=== PATIENT | female | born 1970 | race Caucasian/White ===

== ENCOUNTER 2023-04-06 13:35 | Outpatient (REF) | payer MEDICAID, SELFPAY ==
--- NOTE | 2023-04-07 11:33 | MHC.AU.HA3 ---
Hearing Instrument Follow-Up- Binaural Date of Visit: 04/06/23 Right Ear: Mahesh, Model, Color, Serial Number: Oth[employer]o OPN S2 miniRITE-T [id number] Nuclear Instructor Repair Warranty: 06/26/2022 Nuclear Instructor Loss and Damage Warranty: 06/26/2022 Battery Size: 312 Weaving Inspector/Slim Tube: 3/100 Earmold/Dome/CShell/SlimTip:10 mm double gordon dome (no retention tail) Type of Wax Guard: miniFit Dispensed By: [facility] Date of Fitting: Per [facility], May 2019 Left Ear: Mahesh, Model, Color, Serial Number: Kirt OPN S2 miniRITE-T SN: [id number] Nuclear Instructor Repair Warranty: 06/26/2022 Nuclear Instructor Loss and Damage Warranty: 06/26/2022 Battery Size: 312 Weaving Inspector/Slim Tube: 3/85 Earmold/Dome/CShell/SlimTip: 10 mm double gordon dome (no retention tail) Type of Wax Guard: miniFit Dispensed By: [employer] Date of Fitting: Per [facility] 2019 Follow-Up Summary: Joana was a previous patient at [facility]; however, they no longer accept her insurance. Her left hearing aid is reportedly not working. Upon inspection, wax guard plugged and microphones clogged with debris. Cleaned both hearing aids. Replaced domes and wax guards. Vacuumed microphones. Ran through dehumidifier. A listening check demonstrated that both hearing aids are in good working order. Joana reported that she has asymmetric hearing loss with her right ear worse than her left ear. Several years ago, she was initially fit with a hearing aid on her right ear only. However, in 2019, when she received her current pair of hearing aids, the provider also recommended a hearing aid for her left ear. 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 Recommendations: Hearing instrument follow-up or maintenance as needed. Please contact our clinic with any questions or concerns. Recommendations (Other): Updated audiological evaluation - Joana will contact her PCP for a doctor's order for an updated hearing test. Diagnosis Code(s): Primary Diagnosis: H91.93 Unspecified Hearing Loss, Bilateral Signature: Provider: Jordan Perez, [facility]
== END 2023-04-06 13:36 | disposition home or self-care (01) ==
LOC: HO.HAP 13:35
PROVIDERS: Visit Provider Internal Medicine
DX: Z46.1 Encounter for fitting and adjustment of hearing aid (principal); H91.93 Unspecified hearing loss, bilateral
CPT/HCPCS: 92593; 99499

== ENCOUNTER 2023-04-06 14:27 | Outpatient (REF) | payer SELFPAY | END 2023-04-06 14:28 | disposition home or self-care (01) | LOC: HO.HAP 14:27 | PROVIDERS: Visit Provider Internal Medicine | DX: Z46.1 Encounter for fitting and adjustment of hearing aid (principal); H90.3 Sensorineural hearing loss, bilateral | CPT/HCPCS: V5267 ==

== ENCOUNTER 2023-10-03 14:56 | Outpatient (REF) | payer MEDICAID, SELFPAY ==
--- NOTE | 2023-10-03 15:20 | MHC.AU.HA3 ---
Hearing Instrument Follow-Up- Binaural Date of Visit: 10/03/23 Right Ear: Make, Model, Color, Serial Number: O[employer]on OPN S2 miniRITE-T [id number] Multi Disciplined Language Analyst Repair Warranty: 06/26/2022 Multi Disciplined Language Analyst Loss and Damage Warranty: 06/26/2022 [facility] Service Plan: Battery Size: 312 Technical Sales Consultant/Slim Tube: 3/100 Earmold/Dome/CShell/SlimTip:10 mm double gordon dome (no retention tail) Type of Wax Guard: miniFit Dispensed By: [facility] [employer] Date of Fitting: Per [facility], May 2019 Left Ear: Make, Model, Color, Serial Number: Oticon OPN S2 miniRITE-T SN: [id number] Multi Disciplined Language Analyst Repair Warranty: 06/26/2022 Multi Disciplined Language Analyst Loss and Damage Warranty: 06/26/2022 [facility] Service Plan: Battery Size: 312 Technical Sales Consultant/Slim Tube: 3/85 Earmold/Dome/CShell/SlimTip: 10 mm double gordon dome (no retention tail) Type of Wax Guard: miniFit Dispensed By: [employer] Date of Fitting: Per [facility]onMay 2019 Follow-Up Summary: Reports both aids have not been working for about a week. Also having trouble with right aid staying in. Found both aids with clogged wax guards and microphone ports. Cleaned aids, replaced domes, replaced wax guards, cleaned out bereket ports. Listening check positive after cleaning. Found Joana to be putting wrong aid in wrong ear, reinstructed. Improvement reported. Recommendations: Recommendations: Hearing instrument maintenance in 6 months, or sooner if needed. Diagnosis Code(s): Primary Diagnosis: H90.3 Bilateral Sensorineural Hearing Loss Signature: Provider: Jordan Campbell, [facility]
== END 2023-10-03 14:57 | disposition home or self-care (01) ==
LOC: HO.HAP 14:56
PROVIDERS: Visit Provider Internal Medicine
DX: Z46.1 Encounter for fitting and adjustment of hearing aid (principal); H90.3 Sensorineural hearing loss, bilateral
CPT/HCPCS: 92593; 99499

== ENCOUNTER 2024-01-19 12:59 | Outpatient (REF) | payer MEDICAID, SELFPAY ==
--- NOTE | 2024-01-19 13:42 | MHC.AU.HA3 ---
Hearing Instrument Follow-Up- Binaural Date of Visit: 01/19/24 Right Ear: Mahesh, Model, Color, Serial Number: Oticon OPN S2 miniRITE-T [id number] Comsec Manager Repair Warranty: 06/26/2022 [employer] Loss and Damage Warranty: 06/26/2022 Battery Size: 312 Snowboarder/Slim Tube: 3/100 Earmold/Dome/CShell/SlimTip:10 mm double gordon dome (no retention tail) Type of Wax Guard: miniFit Dispensed By: [facility] [employer] Date of Fitting: Per [facility], May 2019 Left Ear: Mahesh, Model, Color, Serial Number: Oticon OPN S2 miniRITE-T SN: [id number] Comsec Manager Repair Warranty: 06/26/2022 [employer] Manager Loss and Damage Warranty: 06/26/2022 Battery Size: 312 Snowboarder/Slim Tube: 3/85 Earmold/Dome/CShell/SlimTip: 10 mm double gordon dome (no retention tail) Type of Wax Guard: miniFit Dispensed By: [facility] [employer] Date of Fitting: Per [facility], May 2019 Follow-Up Summary: Joana reported right hearing aid has static/distortion and left hearing aid . Lots of wax build up noted on domes and receivers and left wax guard occluded. Otoscopy clear, bilaterally. Cleaned both hearing aids. Replaced domes and wax guards. Vacuumed microphones. Ran through dehumidifier. A listening check demonstrated both hearing aids amplifying clearly. Joana inquired about new rechargeable hearing aids. Advised she will be eligible for new hearing aids in May and explained process, starting with order from PCP for updated hearing test. Recommendations: Hearing instrument follow-up or maintenance as needed. Please contact our clinic with any questions or concerns. Diagnosis Code(s): Primary Diagnosis: H90.3 Bilateral Sensorineural Hearing Loss Signature: Provider: Jordan Perez, [facility]
== END 2024-01-19 13:00 | disposition home or self-care (01) ==
LOC: HO.HAP 12:59
PROVIDERS: Visit Provider Internal Medicine
DX: Z46.1 Encounter for fitting and adjustment of hearing aid (principal); H90.3 Sensorineural hearing loss, bilateral
CPT/HCPCS: 92593; 99499

== ENCOUNTER 2024-02-13 11:04 | Outpatient (REF) | payer MEDICAID, SELFPAY ==
--- NOTE | 2024-02-13 11:48 | MHC.AU.HA3 ---
Hearing Instrument Follow-Up- Binaural Date of Visit: 02/13/24 Right Ear: Make, Model, Color, Serial Number: Oticon OPN S2 miniRITE-T [id number] Tractor Crane Engineer Repair Warranty: 06/26/2022 Tractor Crane Engineer Loss and Damage Warranty: 06/26/2022 [facility] Service Plan: Battery Size: 312 Campus Director/Slim Tube: 3/100 Earmold/Dome/CShell/SlimTip:10 mm double gordon dome (no retention tail) Type of Wax Guard: miniFit Dispensed By: [facility] [employer] Date of Fitting: Per [employer], May 2019 Left Ear: Make, Model, Color, Serial Number: Oticon OPN S2 miniRITE-T SN: [id number] Tractor Crane Engineer Repair Warranty: 06/26/2022 Tractor Crane Engineer Loss and Damage Warranty: 06/26/2022 [facility] Service Plan: Battery Size: 312 Campus Director/Slim Tube: 3/85 Earmold/Dome/CShell/SlimTip: 10 mm double gordon dome (no retention tail) Type of Wax Guard: miniFit Dispensed By: [employer] Date of Fitting: Per [facility] 2019 Follow-Up Summary: Pt reports [facility] beeps repeatedly. Could not replicate in office, but pt is very frustrated as she states it was happening when she brought it in a few weeks ago as well. Sent to [employer] for [id number] repair. Loaner programmed. Will contact patient when aid returns. Recommendations: Recommendations: Patient will be contacted when materials have arrived. Diagnosis Code(s): Primary Diagnosis: H90.3 Bilateral Sensorineural Hearing Loss Signature: Provider: Oli Mcintyre, [facility]
== END 2024-02-13 11:05 | disposition home or self-care (01) ==
LOC: HO.HAP 11:04
PROVIDERS: Visit Provider Internal Medicine
DX: Z13.89 Encounter for screening for other disorder (principal)
CPT/HCPCS: V5299

== ENCOUNTER 2024-03-05 10:32 | Outpatient (REF) | payer MEDICAID, SELFPAY | END 2024-03-05 10:33 | disposition home or self-care (01) | LOC: HO.HAP 10:32 | PROVIDERS: Visit Provider Internal Medicine | DX: Z46.1 Encounter for fitting and adjustment of hearing aid (principal); H90.3 Sensorineural hearing loss, bilateral | CPT/HCPCS: V5014 ==

== ENCOUNTER 2024-04-26 10:14 | Outpatient (REF) | payer MEDICAID, SELFPAY ==
--- NOTE | 2024-04-26 12:53 | MHC.AU.HA3 ---
Hearing Instrument Follow-Up- Binaural Date of Visit: 04/26/24 Right Ear: Make, Model, Color, Serial Number: Oticon OPN S2 miniRITE-T [id number] Diesel Inspector Repair Warranty: 03/13/2025 Diesel Inspector Loss and Damage Warranty: 06/26/2022 [facility] Service Plan: Battery Size: 312 Box Storage Worker/Slim Tube: 3/100 Earmold/Dome/CShell/SlimTip:10 mm double gordon dome (no retention tail) Type of Wax Guard: miniFit Dispensed By: [facility] Date of Fitting: Per [facility], May 2019 Left Ear: Make, Model, Color, Serial Number: Oticon OPN S2 miniRITE-T SN: [id number] Diesel Inspector Repair Warranty: 06/26/2022 Diesel Inspector Loss and Damage Warranty: 06/26/2022 [facility] Service Plan: Battery Size: 312 Box Storage Worker/Slim Tube: 3/85 Earmold/Dome/CShell/SlimTip: 10 mm double gordon dome (no retention tail) Type of Wax Guard: miniFit Dispensed By: [facility] Date of Fitting: Per [facility] 2019 Follow-Up Summary: Joana is here for evaluation, hearing aid maintenance, and to discuss new hearing aids. Current aids cleaned, wax guards changed, domes changed, and mics vacuumed. Listening check improved after cleaning. Removed dome from right ear without incident, patient notes this happens somewhat regularly. Discussed options for new hearing aids, likely interested in Intent 2 miniRITE R with custom molds. Will ask Ana to check Medicaid eligibility as the dispensing date of her current pair is unknown, [facility] only knows the aids were ordered by [facility] May 2019 but unknown if they were stock or fit for Joana immediately. Joana reports right sided discomfort over the last few days, history of ear infections on that side, will see PCP on Monday. Recommendations: Recommendations (Other): Patient will be called to schedule HAE/impressions when eligibility for new aids is determined. Diagnosis Code(s): Primary Diagnosis: H90.A31 Mixed HL, Unilateral Right Ear, W/Restricted Contralateral Secondary Diagnosis: H90.A22 SNHL, Unilateral, Left Ear, W/Restricted Contralateral Hearing Signature: Provider: Oli Mcintyre, [facility]
== END 2024-04-26 10:15 | disposition home or self-care (01) ==
LOC: HO.SH 10:14
PROVIDERS: Visit Provider Internal Medicine
DX: Z01.118 Encounter for examination of ears and hearing with other abnormal findings (principal); H90.A31 Mixed conductive and sensorineural hearing loss, unilateral, right ear with restricted hearing on the contralateral side; H90.A22 Sensorineural hearing loss, unilateral, left ear, with restricted hearing on the contralateral side
CPT/HCPCS: 92557; 92593; 99499

== ENCOUNTER 2024-04-26 11:12 | Outpatient (REF) | payer SELFPAY | END 2024-04-26 11:13 | disposition home or self-care (01) | LOC: HO.HAP 11:12 | PROVIDERS: Visit Provider Internal Medicine | DX: Z46.1 Encounter for fitting and adjustment of hearing aid (principal) | CPT/HCPCS: V5267 ==

== ENCOUNTER 2024-05-10 13:48 | Outpatient (REF) | payer MEDICAID, SELFPAY ==
--- NOTE | 2024-05-10 14:55 | MHC.AU.MED ---
Medical Clearance for Hearing Instrumentation Date: 05/10/24 Patient Name: Joana Gaitan Date of : 1970 Primary Care Provider: Referring Provider: Mirta Cyr MD We have seen your patient on 05/10/24 and have determined that they are a candidate for amplification (See accompanying report). Specifically, they would benefit from: Hearing aid use in both ears There is a statute that addresses Medical Evaluation Requirements prior to fitting a patient with a hearing aid. According to [place] statute 265 CMR:6.03(1), (a) General. Except as provided in 265 CMR 6.03(1)(b), a cuff turner shall not sell a hearing aid unless the prospective user has presented to the cuff turner a written statement signed by a licensed physician that states that the patient's hearing loss has been medically evaluated and the patient may be considered a candidate for a hearing aid. The medical evaluation must have taken place within the preceding six months. Please note: Due to the [place] Statute referenced above, we cannot accept a signature other than that of a licensed physician. LINE INSTALLATION SUPERVISOR and PA signatures cannot be accepted. I am in agreement with the above recommendation. There is no medical contraindication for hearing instrumentation. Physician Signature Date Physician Name (Printed)
== END 2024-05-10 13:49 | disposition home or self-care (01) ==
LOC: HO.HAP 13:48
PROVIDERS: Visit Provider Internal Medicine
DX: Z46.1 Encounter for fitting and adjustment of hearing aid (principal); H90.A22 Sensorineural hearing loss, unilateral, left ear, with restricted hearing on the contralateral side; H90.A31 Mixed conductive and sensorineural hearing loss, unilateral, right ear with restricted hearing on the contralateral side
CPT/HCPCS: 92591; V5275